=== PATIENT | male | born 1980 | race Two or more races ===

== ENCOUNTER 2019-10-22 14:45 | Emergency (ER) | payer OTHER ==
[~2019-10-22] VITALS: Ht 172.7 cm; Wt 86.2 kg
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
[2019-10-22 15:24] VITALS: BP 132/69
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
[2019-10-22] MEDS ORDERED: TYLENOL EXTRA500 MG ORAL (15:50)
[2019-10-22] MEDS ORDERED: ROBAXIN-500MG ORAL (15:50)
--- NOTE | 2019-10-22 16:31 | NUR ---
ER DISCHARGE NOTE: Patient is cleared to be discharged per ERMD, pt is aox4, on room air, with stable vital signs. pt was given dc and prescription instructions, pt was able to verbalize understanding, pt id band removed. pt is able to ambulate with steady gait. pt took all belongings. Pt educated on fracture.
[2019-10-22 17:12] VITALS: BP 129/76
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
== END 2019-10-22 17:12 | disposition home or self-care (01) ==
LOC: EDBD 14:45 → EMR 15:45
DX: S42.002A Fracture of unspecified part of left clavicle, initial encounter for closed fracture (principal); S43.402A Unspecified sprain of left shoulder joint, initial encounter; V03.99XA Pedestrian with other conveyance injured in collision with car, pick-up truck or van, unspecified whether traffic or nontraffic accident, initial encounter; Y92.9 Unspecified place or not applicable
CPT/HCPCS: 29105; 99283